=== PATIENT | female | born 1985 | race Caucasian/White ===

== ENCOUNTER 2023-04-18 09:39 | Emergency (ER) | payer OTHER, SELFPAY ==
[2023-04-18 09:39] VITALS: BMI 40.4
[2023-04-18 09:46] VITALS: BP 146/89
--- NOTE | 2023-04-18 11:29 | ED.GENMED ---
History of Present Illness
General
Chief Complaint: Cough
Source: patient
Time Seen by Provider: 04/18/23 11:08
Travel History
Have you had any contact with someone who has COVID-19?: No
Do you have any symptoms of coronavirus? Fever > 100 degrees, chills, cough, shortness of breath, sore throat, loss of taste or smell, muscle aches, or headache?: No
History of Present Illness
History of Present Illness:
38-year-old female presenting to the emergency department for evaluation of a persistent cough that is been ongoing since pre-, treated with amoxicillin and an inhaler with good resolution of most of her symptoms however is still left with
a lingering cough. This morning patient had a coughing spell and felt a pop in the right lower portion of her ribs and was concerned for a possible rib fracture so decided to come to the ER for further evaluation. Patient denies any shortness of
breath, diaphoresis, exertional dyspnea or orthopnea. No known sick contacts or recent travel. No use of oral contraception. No other PE risk factors.
Past History
Past History
ED Past Medical History: None
ED Past Surgical History: Gynecological
Social History
Tobacco: Non-smoker
Alcohol: None
Drug: None
Personal:
Living: with family
Employment: Employed
Family History
Family History: Other
Review of Systems
Review of Systems
All Other Systems: ROS reviewed and negative except as documented in HPI and ROS
Phy Exam
Physical Exam
Physical Exam:
GENERAL: Alert , in no apparent distress at rest but appears uncomfortable with coughing, dry cough noted
EYE: conjunctiva clear
NECK: Supple, no significant adenopathy.
ENT: o/p clr, mmm.
CARDIAC: Regular rate and rhythm
LUNGS: Clear breath sounds bilaterally, no acute respiratory distress, no wheezes/rales/rhonchi
Back: Mild tenderness within the posterior portion of the back and not as much over a discrete rib
NEUROLOGICAL: Alert and oriented
SKIN: Warm and dry, skin intact.
MUSCULOSKELETAL: well perfused.
PSYCH: Normal and appropriate interaction.
Scores
Heart Failure Risk
Heart Failure Risk Score: Not Applicable
Heart Score for Chest Pain Patients
STEMI patient?: Not applicable
Withdrawal Assessment of Alcohol
Withdrawal Assessment Completed?: Not applicable
Course
Orders/Labs/Results
Orders:
Orders
04/18/23 09:51
Chest [CR Chest - 2 Views ] Urgent
Comment:
Reason For Exam: cough and rib pain posterior right lower
04/18/23 09:52
CR Ribs-right 2 Vw No Pa Chest Urgent
Reason For Exam: cough, right lower rib pain.
04/18/23 11:29
Acetaminophen [Tylenol] 1,000 mg PO NOW STA
Vital Signs
Initial and Last Documented VS:
Initial Vital Signs
Temp Pulse Resp BP Pulse Ox
98.0 F 83 20 146/89 97
04/18/23 09:46 04/18/23 09:46 04/18/23 09:46 04/18/23 09:46 04/18/23 09:46
Last Documented Vital Signs
Temp Pulse Resp BP Pulse Ox
98.0 F 83 20 146/89 99
04/18/23 09:46 04/18/23 09:46 04/18/23 09:46 04/18/23 09:46 04/18/23 11:23
MDM/Problems Addressed
Differential Diagnosis Includes:
Rib fracture, rib cartilage injury, muscle strain, pneumonia, I do not have concern for PE given symptoms started during cough and are clearly reproducible
MDM/Problems Addressed:
38-year-old female present emergency department for evaluation of a persistent cough however the reason patient came to the ER today is due to the pain developed from her coughing when she felt she may have broken a rib. A rib series and chest
x-ray was ordered from triage and ultimately does not reveal any rib fracture, infiltrate/consolidations or pneumothorax. I suspect rib cartilage injury versus costochondritis versus pleurisy to be the most likely diagnosis. Advised NSAIDs as
needed for pain. Will treat with a steroid taper given the chronic nature of patient's cough as well as Tessalon Perles.
*Radiology
Radiology exam reviewed: preliminary read by ED provider (No fracture, no infiltrates)
*Pulse Oximetry
Patient hypoxic: no
*Critical Care Note
Total Time (30-74mins, 75-104mins- exclusive of procedures): Not Applicable
Patient Management
Escalation/DeEscalation of care consider admission/obs:
Radiologist felt that there could be a right lower lobe pneumonia on her x-ray. I contacted the patient and left a voicemail for her that I would be sending a prescription to her pharmacy for doxycycline for 10 days. Advised patient she may return
call to discuss if need be.
ED Attending Note
-
Portions of this chart may have been created with voice recognition software.� Occasional wrong word or��sound alike� substitutions may have occurred due to the inherent limitations of voice recognition software.
Discharge Plan
Departure
Patient Disposition: Home (Routine Discharge)
Date of Disposition: 04/18/23
Time of Disposition: 11:29
Patient with high blood pressure during this ER visit?: Yes
Discharge Problem:
Rib pain on right side
Instructions: Acute Bronchitis, Adult (DC)
Prescriptions:
New
prednisone 10 mg Tablet
See Rx Instructions .ROUTE .COMPLEX Qty: 30 0RF
Rx Instructions:
Take By Mouth:
40 mg daily x3 days, 30 mg daily x3 days,
20 mg daily x3 days, 10 mg daily x3 days.
benzonatate 100 mg capsule
100 mg PO TID PRN (Reason: Cough) Qty: 15 0RF
doxycycline hyclate [Vibramycin] 100 mg capsule
100 mg PO BID 10 Days Qty: 20 0RF
No Action
prenat.vits,deloris,[id number] [ #2] 1 TAB tablet
1 tab PO DAILY
amoxicillin-pot clavulanate 1 TABLET tablet
1 tab PO Q12 7 Days Qty: 13 0RF
Interventions
Interventions:
*Risk Screen - Suicide Last Done: 04/18/23 11:23
*General Assessment Last Done: 04/18/23 11:23
*Neglect/Abuse Screening Last Done: 04/18/23 11:23
ED- Fall Risk Assessment Last Done: 04/18/23 11:23
*ED COVID-19 Vaccine History Last Done: 04/18/23 11:36
*Nursing Disposition Last Done: 04/18/23 11:36
ED- Pulmonary Assessment Last Done: 04/18/23 11:23
Discharge Date and Time
Discharge Date/Time: 04/18/23 11:36
[2023-04-18] MEDS: TYLENOL 1000 MG PO (11:35)
== END 2023-04-18 11:36 | disposition home or self-care (01) ==
LOC: EMR 09:39
PROVIDERS: EMERGENCY PHYSICIAN Emergency Medicine
DX: R07.81 Pleurodynia (principal); R03.0 Elevated blood-pressure reading, without diagnosis of hypertension
CPT/HCPCS: 99283; 71046; 71100

== ENCOUNTER → 2024-08-05 14:37 | Outpatient (REF) | payer OTHER, SELFPAY | LOC: WDC 14:37 | PROVIDERS: ATTENDING PHYSICIAN Obstetrics & Gynecology | DX: Z12.31 Encounter for screening mammogram for malignant neoplasm of breast (principal) | CPT/HCPCS: 77063; 77067 ==